=== PATIENT | male | born 2000 | race African-American/Black ===

== ENCOUNTER 2018-05-20 16:27 | Emergency (ER) | payer MEDICAID ==
[~2018-05-20] VITALS: Ht 182.9 cm; Wt 75.5 kg
[2018-05-20] MEDS ORDERED: KETOROLAC TROMETHAMINE 60 MG/2 ML VIAL IM ONE (17:45)
[2018-05-20] MEDS ORDERED: ALBUTEROL SULFATE HFA 90 MCG/PUFF 8 GM INHALER IH ONE (17:45)
[2018-05-20 18:11] VITALS: BP 128/89
== END 2018-05-20 18:24 | disposition home or self-care (01) ==
LOC: EMS 16:29
DX: J40 Bronchitis, not specified as acute or chronic (principal); J06.9 Acute upper respiratory infection, unspecified
CPT/HCPCS: 71046; 94640; 96372; 99283; J1885; J3535

== ENCOUNTER 2021-02-11 19:33 | Emergency (ER) | payer MEDICAID, OTHER ==
[~2021-02-11] VITALS: Ht 182.9 cm; Wt 97.7 kg
[~2021-02-11 19:33] MED LIST: OMEP20 PO
[2021-02-11] MEDS ORDERED: PERTUSS(ACELL),DIPH,TET VAC/PF 0.5 ML SYRINGE IM. ONE (20:00)
[2021-02-11] MEDS ORDERED: LIDOCAINE 1%/EPI 1:200,000/PF 10 ML VIAL SQ ONE (20:15)
[2021-02-11] MEDS ORDERED: BACITRACIN 0.9 GM PACKET OINTMENT TP ONE (20:15)
[2021-02-11] MEDS ORDERED: LIDOCAINE 1%/EPI 1:200,000/PF 30 ML VIAL SQ ONE (20:15)
[2021-02-11 21:21] VITALS: BP 138/77
== END 2021-02-11 21:38 | disposition home or self-care (01) ==
LOC: EMS 19:39
DX: S61.412A Laceration without foreign body of left hand, initial encounter (principal); W25.XXXA Contact with sharp glass, initial encounter; Y93.89 Activity, other specified; Y92.89 Other specified places as the place of occurrence of the external cause; Y99.0 Civilian activity done for income or pay
CPT/HCPCS: 12001; 90471; 90715; 99283; J3490